=== PATIENT | female | born 1975 | race Caucasian/White ===

== ENCOUNTER 2017-03-03 18:17 | Emergency (ER) | payer OTHER ==
[2017-03-03] MEDS: HYDROcodone/APAP 5/325MG 1 TAB TABLET PO (19:16)
[2017-03-03] MEDS: NAPROXEN 500 MG TABLET PO (19:16)
[2017-03-03] MEDS ORDERED: NAPROXEN 500 MG TABLET PO (20:04)
[2017-03-03] MEDS ORDERED: CYCLOBENZAPRINE 10 MG TABLET. PO (20:15)
[2017-03-03] MEDS ORDERED: predniSONE 20 MG TABLET PO (20:15)
== END 2017-03-03 20:56 | disposition home or self-care (01) ==
LOC: ER 18:17
DX: S62.645A Nondisplaced fracture of proximal phalanx of left ring finger, initial encounter for closed fracture (principal); J45.909 Unspecified asthma, uncomplicated; Z88.0 Allergy status to penicillin; Z88.4 Allergy status to anesthetic agent; W18.30XA Fall on same level, unspecified, initial encounter; Y93.89 Activity, other specified; Y99.8 Other external cause status; Y92.89 Other specified places as the place of occurrence of the external cause
CPT/HCPCS: 29125; 73130; 99284-25